=== PATIENT | female | born 2000 | race Caucasian/White ===

== ENCOUNTER → 2022-03-11 | Outpatient (CLI) | payer OTHER | LOC: KOH-I 03-03 08:30 | DX: R10.9 Unspecified abdominal pain (principal); N39.0 Urinary tract infection, site not specified; M54.50 Low back pain, unspecified; Z87.442 Personal history of urinary calculi; M43.17 Spondylolisthesis, lumbosacral region | CPT/HCPCS: 74176 ==

== ENCOUNTER → 2022-04-10 | Day surgery (SDC) | payer OTHER | END | disposition home or self-care (01) | LOC: OR 04-04 08:00 → EDSTATUS 04-04 08:00 → RAD 04-04 08:00 → OR 08:00 → RAD 09:14 | DX: N39.0 Urinary tract infection, site not specified (principal) | CPT/HCPCS: 74455; Q9958 ==